=== PATIENT | female | born 1995 | race Caucasian/White ===

== ENCOUNTER 2017-02-12 22:54 | Emergency (ER) | payer BC ==
[2017-02-12 23:03] VITALS: BP 137/81
--- NOTE | 2017-02-12 23:21 | RADIOLOGY REPORT (SQ) ---
EXAM DESCRIPTION: ELBOW RIGHT AP/LAT COMPLETED DATE/TIME: 02/12/2017 11:11 pm REASON FOR STUDY: injury COMPARISON: None. NUMBER OF VIEWS: Two views. TECHNIQUE: AP and lateral radiographic images acquired of the right elbow. LIMITATIONS: None. FINDINGS: MINERALIZATION: Normal. BONES: No acute fracture or dislocation. No worrisome bone lesions. JOINT: No effusion. SOFT TISSUES: No soft tissue swelling. No foreign body. OTHER: No other significant finding. IMPRESSION: NEGATIVE STUDY OF THE RIGHT ELBOW. NO RADIOGRAPHIC EVIDENCE OF ACUTE INJURY. TECHNICAL DOCUMENTATION: JOB ID: [id number] [employer]- All Rights Reserved
--- NOTE | 2017-02-12 23:26 | ER Document Report ---
ED Extremity Problem, Upper - General Chief Complaint: Arm Injury Stated Complaint: RIGHT ARM INJURY Time Seen by Provider: 02/12/17 23:21 Notes: The patient is a 21-year-old female who presents with right elbow pain after she hyperextended it playing with her boyfriend. She is still having some swelling and pain, but denies any other injuries, numbness, tingling, open wounds or shoulder pain. TRAVEL OUTSIDE OF THE [place] IN LAST 30 DAYS: No - Related Data Allergies/Adverse Reactions: No Known Allergies Allergy (Unverified 02/12/17 23:03) Past Medical History - General Information source: Patient - Social History Smoking Status: Unknown if Ever Smoked Family History: Reviewed & Not Pertinent Patient has suicidal ideation: No Patient has homicidal ideation: No Renal/ Medical History: Denies: Hx Peritoneal Dialysis Review of Systems - Review of Systems Notes: REVIEW OF SYSTEMS: CONSTITUTIONAL: -fevers, -chills EENT: -eye pain, -difficulty swallowing, -nasal congestion CARDIOVASCULAR:-chest pain, -syncope. RESPIRATORY: -cough, -SOB GASTROINTESTINAL: -abdominal pain, - nausea, -vomiting, -diarrhea GENITOURINARY: -dysuria, -hematuria MUSCULOSKELETAL: +right elbow pain, -back pain, -neck pain SKIN: -rash or skin lesions. HEMATOLOGIC: -easy bruising or bleeding. LYMPHATIC: -swollen, enlarged glands. NEUROLOGICAL: -altered mental status or loss of consciousness, -headache, - neurologic symptoms PSYCHIATRIC: -anxiety, -depression. ALL OTHER SYSTEMS REVIEWED AND NEGATIVE. Physical Exam - Vital signs Vitals: Temp Pulse Resp BP Pulse Ox 98.8 F 66 18 137/81 H 100 02/12/17 23:00 02/12/17 23:00 02/12/17 23:00 02/12/17 23:00 02/12/17 23:00 - Notes Notes: PHYSICAL EXAMINATION: GENERAL: Well-appearing, well-nourished and in no acute distress. HEAD: Atraumatic, normocephalic. EYES: Pupils equal round and reactive to light, extraocular movements intact, sclera anicteric, conjunctiva are normal. ENT: nares patent, oropharynx clear without exudates. Moist mucous membranes. NECK: Normal range of motion, supple without lymphadenopathy LUNGS: Breath sounds clear to auscultation bilaterally and equal. No wheezes rales or rhonchi. HEART: Regular rate and rhythm without murmurs ABDOMEN: Soft, nontender, normoactive bowel sounds. No guarding, no rebound. No masses appreciated. EXTREMITIES: Mild swelling and tenderness of right medial and lateral elbow. Strong radial and ulnar pulses. Sensation intact. NEUROLOGICAL: Cranial nerves grossly intact. Normal speech, normal gait. Normal sensory and motor exams. PSYCH: Normal mood, normal affect. SKIN: Warm, Dry, normal turgor, no rashes or lesions noted. Course - Re-evaluation Re-evalutation: Patient has no evidence of fractures on elbow x-ray. Suspect she strained her elbow from the hyper extension. She is neurovascularly intact distally. She denies any concern about domestic abuse. - Vital Signs Vital signs: Temp Pulse Resp BP Pulse Ox 98.8 F 66 18 137/81 H 100 02/12/17 23:00 02/12/17 23:00 02/12/17 23:00 02/12/17 23:00 02/12/17 23:00 - Diagnostic Test Radiology reviewed: Image reviewed, Reports reviewed Radiology results interpreted by me: Right elbow x-ray: NAD Discharge - Discharge Clinical Impression: Strain of elbow, right Qualifiers: Encounter type: initial encounter Qualified Code(s): S56.911A - Strain of unspecified muscles, fascia and tendons at forearm level, right arm, initial encounter Condition: Stable Disposition: HOME, SELF-CARE Additional Instructions: SPRAIN: Your injury is a sprain. A sprain results from stretching or tearing of the ligaments, usually from a twisting injury. The ligaments will require time and protection in order to heal properly. Many sprains are quite disabling and should be taken seriously. The usual initial treatment of sprains is cold packs, elevation, and rest of the injured area. Your physician has assessed the seriousness of your ligament injury, and has outlined a treatment plan. Understand that this treatment may change, depending on how you progress. If a re-examination was recommended, it is important that you follow up as instructed. Call the doctor any time if there is severe pain, numbness, or loss of function in the injured area. ICE & ELEVATION: Apply ice packs frequently against the painful area. Many different schedules are recommended, such as "20 minutes on, 20 minutes off" or "one hour ice, two hours rest." If you need to work, you may need to go longer between ice treatments. You should plan to have the area ice packed AT LEAST one- fourth of the time. The ice should be applied over the wrap, tape, or splint, or over a layer of cloth -- not directly against the skin. Some ice bags have a built-in cloth and can be put directly on the skin. Your injured part should be elevated as much as possible over the next 48 hours. Try to keep the injury above the level of the heart. Avoid use of the injured area. Elevation and rest will decrease the swelling. USE OF LHDO-ABB-NIKNNYS IBUPROFEN: Ibuprofen (Advil, Nuprin, Medipren, Motrin IB) is a medication for fever and pain control. In addition, it has anti- inflammatory effects which may be beneficial, especially in the treatment of injuries. It's best to take ibuprofen with food. Persons with ulcer disease or allergy to aspirin should notify their physician of this before taking ibuprofen. Ibuprofen can be given every four to six hours, for a total of four doses daily. Age Pain or fever dose Antiinflammatory dose 6-8 yr 200 mg (1 tab) 200 mg (1 tab) 9-11 yr 200 mg (1 tab) 200-400 mg (1-2 tab) 11-14 yr 200-400 mg (1-2 tab) 400 mg (2 tab) 15-adult 400 mg (2 tab) 600 mg (3 tab) FOLLOW-UP CARE: If you have been referred to a physician for follow-up care, call the physician s office for an appointment as you were instructed or within the next two days. If you experience worsening or a significant change in your symptoms, notify the physician immediately or return to the Emergency Department at any time for re-evaluation. Referrals: SAE QUIROZ DO [ACTIVE STAFF] - Follow up as needed
== END 2017-02-12 23:41 | disposition home or self-care (01) ==
LOC: ER 22:54
DX: S56.911A Strain of unspecified muscles, fascia and tendons at forearm level, right arm, initial encounter (principal); X50.0XXA Overexertion from strenuous movement or load, initial encounter; Y92.009 Unspecified place in unspecified non-institutional (private) residence as the place of occurrence of the external cause; M25.521 Pain in right elbow
CPT/HCPCS: 99283

== ENCOUNTER → 2019-08-26 | Outpatient (CLI) | payer OTHER | LOC: OD 11:57 | PROVIDERS: ATTEND Midwife | DX: N91.1 Secondary amenorrhea (principal); Z41.8 Encounter for other procedures for purposes other than remedying health state | CPT/HCPCS: 36415; 86850; 86900; 86901 ==

== ENCOUNTER 2020-01-29 10:00 | Outpatient (CLI) | payer OTHER, MEDICAID ==
[2020-01-29 10:46] LABS: APPEARANCE,URINE SLIGHTLY-CLOUDY; BILIRUBIN,URINE NEGATIVE (NEGATIVE); COLOR,URINE YELLOW; GLUCOSE, URINE NEGATIVE (NEGATIVE); KETONES,URINE NEGATIVE (NEGATIVE); LEUKOCYTE ESTERASE,URINE LARGE (NEGATIVE); NITRITE,URINE NEGATIVE (NEGATIVE); PROTEIN,URINE NEGATIVE (NEGATIVE); URINE SPECIFIC GRAVITY 1.008; UROBILINOGEN,URINE NEGATIVE mg/dL (<2.0)
[2020-01-29 11:00] LABS: URINE AMPHETAMINES SCREEN NEGATIVE; URINE BARBITURATES SCREEN NEGATIVE; URINE BENZODIAZEPINES SCREEN NEGATIVE; URINE COCAINE SCREEN NEGATIVE; URINE MARIJUANA (THC) SCREEN NEGATIVE; URINE METHADONE SCREEN NEGATIVE; URINE PHENCYCLIDINE SCREEN NEGATIVE
== END 2020-01-29 11:44 | disposition home or self-care (01) ==
LOC: LC 10:00
PROVIDERS: ATTEND Obstetrics & Gynecology
DX: O36.8130 Decreased fetal movements, third trimester, not applicable or unspecified (principal); Z3A.28 28 weeks gestation of pregnancy
CPT/HCPCS: 80307; 81001

== ENCOUNTER 2020-02-10 07:27 | Inpatient (IN) | payer OTHER, MEDICAID ==
[2020-02-10 08:02] LABS: APPEARANCE,URINE CLOUDY; BILIRUBIN,URINE NEGATIVE (NEGATIVE); COLOR,URINE YELLOW; GLUCOSE, URINE NEGATIVE (NEGATIVE); KETONES,URINE TRACE mg/dL (NEGATIVE); LEUKOCYTE ESTERASE,URINE TRACE (NEGATIVE); NITRITE,URINE NEGATIVE (NEGATIVE); PROTEIN,URINE 30 mg/dL (NEGATIVE); URINE SPECIFIC GRAVITY 1.027; UROBILINOGEN,URINE NEGATIVE mg/dL (<2.0)
[2020-02-10] MEDS ORDERED: MAGNESIUM SULFATE 0 GM/0 ML RTUPB IV ONE (08:04)
[2020-02-10] MEDS ORDERED: MAGNESIUM SULFATE 20 GM/500 ML RTUINJ IV ONE (08:04)
[2020-02-10] MEDS ORDERED: BETAMET ACET/BETAMET NA INJ 6 MG/1 ML ONE (08:04)
[2020-02-10] MEDS ORDERED: PENICILLIN G-K 5 MILLION UNIT VIAL ONE (08:05)
[2020-02-10] MEDS ORDERED: DEXTROSE 5%-LACTATED RINGERS 1,000 ML IV PRN (08:09)
[2020-02-10] MEDS ORDERED: PENICILLIN G POTASSIUM 5,000,000 UNIT in DEXTROSE 5%-WATER 100 ML IV ONE (08:13)
[2020-02-10] MEDS ORDERED: MAGNESIUM SULFATE 20 GM/500 ML RTUINJ IV PRN (08:17)
[2020-02-10] MEDS ORDERED: MAGNESIUM SULFATE 4 GM/100 ML RTUPB IV ONE ×2 (08:17→10:16)
[2020-02-10] MEDS ORDERED: ONDANSETRON HCL INJ/PF 4 MG/2 ML SDV IV PRN (08:19)
[2020-02-10 08:23] LABS: URINE AMPHETAMINES SCREEN NEGATIVE; URINE BARBITURATES SCREEN NEGATIVE; URINE BENZODIAZEPINES SCREEN NEGATIVE; URINE COCAINE SCREEN NEGATIVE; URINE MARIJUANA (THC) SCREEN NEGATIVE; URINE METHADONE SCREEN NEGATIVE; URINE PHENCYCLIDINE SCREEN NEGATIVE
--- NOTE | 2020-02-10 08:23 | Admission Physical ---
Datetime Report Generated by CPN: 02/10/2020 08:22 CURRENT ADMISSION Chief Complaint: Uterine Contractions Admit Impression : , Intrauterine ; Active Labor Admit Plan: Admit to Unit; Initiate Labor Protocol ALLERGIES Medication Allergies: No Medication Allergies: No Known Allergies (02/10/2020) Latex: No Latex Allergies OBSTETRICAL HISTORY EDC: 04/21/2020 00:00 : 1 Para: 0 Term: 0 : 0 SAB: 0 IAB: 0 Livin Rh Sensitization: No Incompetent Cervix: No NILTON: No Infertility: No Uterine Anomaly: No IUGR: No Hx Previous C/S: No Macrosomia: No Hx Loss/Stillborn: No PIH: No Hx : No Placenta Previa/Abruption: No Depression/PP Depression: No PTL/PROM: No Post Hemorrhage: No Current Procedures: Ultrasound Obstetrical History Comments: G1- current SEE RECORDS Alcohol: No Marijuana : No Cocaine: No Other Illicit Drugs: No MEDICAL HISTORY Hosp/Surgery: Yes Medical History Comments: t_ a at 7 y/o, PHYSICAL EXAM General: Normal HEENT: Normal Neurologic: Normal Thyroid: Normal Heart: Normal Lungs: Normal Breast: Normal Back: Normal Abdomen: Normal Genitourinary Exam: Normal Extremities: Normal DTRs: Normal Pelvic Type: Adequate Vital Signs: Reviewed VAGINAL EXAM Dilatation: 6 Effacement: 80 Station: -1 Contraction Comments: q2-3 MEMBRANES Membranes: Intact FETUS A EGA: 29.6 Monitoring: External US FHR- Baseline: 155 Variability: Moderate 6-25bpm Accelerations: 15X15 Admit Comment: at 29 wks presents c/o worsening lower back and abdominal pain. Pt states it started yesterday. Denies SROM or bleeding. VE /-1. Vtx on spot check ultrasound., Carolyn Grace and Didier on the floor and aware of pts status. PLan to admit for PTL, start Magnessium Sulfate, Give PNC and Betamethasone. INFORMED CONSENT Assignment: Norma Grace MD Signature: with User ID: [email or web address] : with User ID: [email or web address]
[2020-02-10 08:38] LABS: ABSOLUTE LYMPHOCYTES (AUTO) 1.4 10^3/uL (0.5-4.7); ABSOLUTE MONOCYTES (AUTO) 0.7 10^3/uL (0.1-1.4); ABSOLUTE NEUT (AUTO) 11.3 10^3/uL (1.7-8.2); BASOPHILS % (AUTO) 0.4 % (0-2); EOSINOPHILS % (AUTO) 0.2 % (0-6); HEMATOCRIT 38.8 % (36.0-47.0); LYMPHOCYTES % (AUTO) 10.2 % (13-45); MEAN CORPUSCULAR HEMOGLOBIN 25.8 pg (27.0-33.4); MEAN CORPUSCULAR HGB CONC 33.5 g/dL (32.0-36.0); MEAN CORPUSCULAR VOLUME 77 fl (80-97); MONOCYTES % (AUTO) 5.2 % (3-13); PLATELET COUNT 204 10^3/uL (150-450); RED BLOOD COUNT 5.04 10^6/uL (3.72-5.28); RED CELL DISTRIBUTION WIDTH 15.7 % (11.5-14.0); TOTAL CELLS COUNTED % (AUTO) 100 %; WHITE BLOOD COUNT 13.4 10^3/uL (4.0-10.5)
[2020-02-10] MEDS ORDERED: ONDANSETRON HCL INJ/PF 4 MG/2 ML SDV ONE (08:38)
[2020-02-10 08:53] LABS: BACTERIA (WET MOUNT) 4+ BACTERIA SEEN; EPITHELIALS (WET MOUNT) 4+ EPITHELIALS SEEN; RBCS (WET MOUNT) FEW RBCS SEEN; T.VAGINALIS (WET MOUNT) NO TRICHOMONAS SEEN; WBCS (WET MOUNT) 2+ WBCS SEEN; YEAST (WET MOUNT) NO YEAST SEEN
[2020-02-10] MEDS ORDERED: EPHEDRINE SULFATE INJ 50 MG/1 ML AMPULE ONE (09:07)
[2020-02-10] MEDS ORDERED: AZITHROMYCIN INJ 500 MG VIAL IV ONE ×2 (09:08→10:25)
[2020-02-10] MEDS ORDERED: ROPIVACAINE HCL 0.2% INJ/PF (2 MG/ML) 20 ML SDV ONE (09:08)
[2020-02-10] MEDS ORDERED: FENTANYL/BUPIVACAINE/NS/PF 300 MCG/150 ML RTUINJ EPI ONE (09:08)
[2020-02-10] MEDS ORDERED: LIDOCAINE 1% INJ-PF (10 MG/ML) 30 ML SDV ONE ×2 (09:32→16:28)
[2020-02-10] MEDS ORDERED: BETAMET ACET/BETAMET NA INJ 6 MG/1 ML IM SCH (10:00)
[2020-02-10 10:46] LABS: CHLAM PCR NOT DETECTED (NOT DETECT)
[2020-02-10] MEDS ORDERED: AMPICILLIN SODIUM 2 GM in NORMAL SALINE 100 ML IV SCH (12:00)
[2020-02-10] MEDS ORDERED: PENICILLIN G POTASSIUM 2,500,000 UNIT in DEXTROSE 5%-WATER 50 ML IV SCH (12:14)
[2020-02-10] MEDS ORDERED: MISOPROSTOL 0.2 MG TABLET ONE (16:28)
[2020-02-10] MEDS ORDERED: OXYTOCIN/0.9 % SODIUM CHLORIDE 30 UNIT/500 ML RTUINJ ONE (16:29)
[2020-02-10] MEDS ORDERED: ACETAMINOPHEN WITH CODEINE #3 TABLET PO PRN (16:57)
[2020-02-10] MEDS ORDERED: MAGNESIUM HYDROXIDE SUSP 30 ML UDCUP PO PRN (16:57)
[2020-02-10] MEDS ORDERED: GLYCERIN/WITCH HAZEL LEAF 1 EACH MED..WIPE TP PRN (16:57)
[2020-02-10] MEDS ORDERED: DIPH/PERTUSS(ACELL)/TETANUS VAC/PF 0.5 ML SYR (>=10YO) IM PRN (16:57)
[2020-02-10] MEDS ORDERED: OXYTOCIN/0.9 % SODIUM CHLORIDE 30 UNIT/500 ML RTUINJ IV PRN (16:57)
[2020-02-10] MEDS ORDERED: PSEUDOEPHEDRINE HCL 30 MG TABLET PO PRN (16:57)
[2020-02-10] MEDS ORDERED: BENZOCAINE/MENTHOL AEROSOL SPRAY 56 ML TOP PRN (16:57)
[2020-02-10] MEDS ORDERED: PROMETHAZINE HCL 25 MG SUPP.RECT PR PRN (16:57)
[2020-02-10] MEDS ORDERED: MEASLES,MUMPS&RUBELLA VACC/PF 0.5 ML VIAL SUBCUT PRN (16:57)
[2020-02-10] MEDS ORDERED: ZOLPIDEM TARTRATE 5 MG TABLET PO PRN (16:57)
[2020-02-10] MEDS ORDERED: DIBUCAINE 1% OINTMENT 28 GM TP PRN (16:57)
[2020-02-10] MEDS ORDERED: PROMETHAZINE HCL 25 MG TABLET PO PRN (16:57)
[2020-02-10] MEDS ORDERED: PROMETHAZINE HCL INJ 25 MG/1 ML VIAL IV PRN (16:57)
[2020-02-10] MEDS ORDERED: NA PHOS,M-B/NA PHOS,DI-BA (ADULT) 133 ML ENEMA PR PRN (16:57)
[2020-02-10] MEDS ORDERED: ACETAMINOPHEN 650 MG SUPP.RECT PR PRN (16:57)
[2020-02-10] MEDS ORDERED: DIPHENHYDRAMINE HCL 25 MG CAPSULE PO PRN (16:57)
[2020-02-10] MEDS ORDERED: IBUPROFEN 800 MG TABLET PO SCH (17:00)
--- NOTE | 2020-02-10 17:19 | PDOC DISCHARGE SUMMARY ---
Impression - Admit/DC Date/PCP Admission Date/Primary Care Provider: 02/10/20 08:12 Discharge Date: 02/10/20 - labor at 29 weeks. +Actiprom noted on admission. S/p Betamethasone, PCN and Ampicillin - Discharge Diagnosis (1) 29 to 30 weeks gestation of Is this a current diagnosis for this admission?: Yes (2) Gestational diabetes mellitus (GDM) Is this a current diagnosis for this admission?: Yes (3) labor in third trimester Is this a current diagnosis for this admission?: Yes (4) premature rupture of membranes Is this a current diagnosis for this admission?: Yes (5) (spontaneous vaginal delivery) Is this a current diagnosis for this admission?: Yes - Additional Information Discharge Diet: As Tolerated, Regular Discharge Activity: Activity As Tolerated, No Driving, No Lifting Over 10 Pounds, Pelvic Rest Prescriptions: Ibuprofen [Motrin 800 mg Tablet] 800 mg PO Q8 #60 tablet Home Medications: Vits96/Iron Fum/Folic [ Tablet] 1 each PO DAILY 01/29/20 Ibuprofen [Motrin 800 mg Tablet] 800 mg PO Q8 #60 tablet 02/10/20 Results Laboratory Results: WBC 13.4 10^3/uL (4.0-10.5) H 02/10/20 08:25 RBC 5.04 10^6/uL (3.72-5.28) 02/10/20 08:25 Hgb 13.0 g/dL (12.0-15.5) 02/10/20 08:25 Hct 38.8 % (36.0-47.0) 02/10/20 08:25 MCV 77 fl (80-97) L 02/10/20 08:25 MCH 25.8 pg (27.0-33.4) L 02/10/20 08:25 MCHC 33.5 g/dL (32.0-36.0) 02/10/20 08:25 RDW 15.7 % (11.5-14.0) H 02/10/20 08:25 Plt Count 204 10^3/uL (150-450) 02/10/20 08:25 Lymph % (Auto) 10.2 % (13-45) L 02/10/20 08:25 [place] % (Auto) 5.2 % (3-13) 02/10/20 08:25 Eos % (Auto) 0.2 % (0-6) 02/10/20 08:25 Baso % (Auto) 0.4 % (0-2) 02/10/20 08:25 Absolute Neuts (auto) 11.3 10^3/uL (1.7-8.2) H 02/10/20 08:25 Absolute Lymphs (auto) 1.4 10^3/uL (0.5-4.7) 02/10/20 08:25 Absolute Monos (auto) 0.7 10^3/uL (0.1-1.4) 02/10/20 08:25 Absolute Eos (auto) 0.0 10^3/uL (0.0-0.6) 02/10/20 08:25 Absolute Basos (auto) 0.0 10^3/uL (0.0-0.2) 02/10/20 08:25 Seg Neutrophils % 84.0 % (42-78) H 02/10/20 08:25 Urine Color Cancelled 02/10/20 08:38 Urine Appearance Cancelled 02/10/20 08:38 Urine pH Cancelled 02/10/20 08:38 Ur Specific Funk Cancelled 02/10/20 08:38 Urine Protein Cancelled 02/10/20 08:38 Urine Glucose (UA) Cancelled 02/10/20 08:38 Urine Ketones Cancelled 02/10/20 08:38 Urine Blood Cancelled 02/10/20 08:38 Urine Nitrite Cancelled 02/10/20 08:38 Urine Bilirubin Cancelled 02/10/20 08:38 Urine Urobilinogen Cancelled 02/10/20 08:38 Ur Leukocyte Esterase Cancelled 02/10/20 08:38 Urine WBC (Auto) 8 /HPF 02/10/20 07:45 Urine RBC (Auto) 4 /HPF 02/10/20 07:45 U Hyaline Cast (Auto) 1 /LPF 02/10/20 07:45 Urine Bacteria (Auto) 1+ /HPF 02/10/20 07:45 Squamous Epi Cells Auto 9 /HPF 02/10/20 07:45 Urine Mucus (Auto) FEW /LPF 02/10/20 07:45 Urine Ascorbic Acid Cancelled 02/10/20 08:38 Membranes Rupture POSITIVE (NEGATIVE) H 02/10/20 08:38 Epi Cells (Wet Prep) 4+ EPITHELIALS SEEN 02/10/20 08:38 Bacteria (Wet Prep) 4+ BACTERIA SEEN 02/10/20 08:38 Trichomonas (Wet Prep) NO TRICHOMONAS SEEN 02/10/20 08:38 Vaginal WBC 2+ WBCS SEEN 02/10/20 08:38 Vaginal RBC FEW RBCS SEEN 02/10/20 08:38 Vaginal Yeast NO YEAST SEEN 02/10/20 08:38 Urine Opiates Screen NEGATIVE 02/10/20 07:45 Urine Methadone Screen NEGATIVE 02/10/20 07:45 Ur Barbiturates Screen NEGATIVE 02/10/20 07:45 Ur Phencyclidine Scrn NEGATIVE 02/10/20 07:45 Ur Amphetamines Screen NEGATIVE 02/10/20 07:45 U Benzodiazepines Scrn NEGATIVE 02/10/20 07:45 Urine Cocaine Screen NEGATIVE 02/10/20 07:45 U Marijuana (THC) Screen NEGATIVE 02/10/20 07:45 Chlamydia DNA (PCR) NOT DETECTED (NOT DETECT) 02/10/20 08:38 N.gonorrhoeae DNA (PCR) NOT DETECTED (NOT DETECT) 02/10/20 08:38 Blood Type A POSITIVE 02/10/20 08:25 Antibody Screen NEGATIVE 02/10/20 08:25 Plan Plan of Treatment: d/c home so patient may go to other hospital to be with 29 week baby Time Spent: Less than 30 Minutes
[2020-02-10] MEDS ORDERED: IBUPROFEN 800 MG TABLET ONE (17:53)
[2020-02-10] MEDS ORDERED: FERROUS SULFATE 325 MG TABLET PO SCH (18:00)
[2020-02-10] MEDS ORDERED: DOCUSATE SODIUM 100 MG CAPSULE PO SCH (18:00)
--- NOTE | 2020-02-10 18:53 | Delivery Summary ---
Del Sum A-C Datetime Report Generated by CPN: 02/10/2020 18:52 DELIVERY PERSONNEL DELIVERY PERSONNEL: [id number] Delivery Doctor:: Martin Velásquez MD Nurse Automatic Furnace Operator Certified:: Jodee Dorado CNM Labor and Delivery Nurse:: Carlotta Weston RNcounter checker Nurse:: HONG Lucas Chip Person:: Dr. Marisol Abbott Nurse Practitioner:: ANUJA Moreira Nursery Nurse:: Jeanie Martinez RN Nursery Nurse:: Cammie Mayes RN Patrol Driver/TYPE BAR AND SEGMENT ASSEMBLER: Geri Rivera CST Patrol Driver/TYPE BAR AND SEGMENT ASSEMBLER: Isatu Brink WET COTTON FEEDER MATERNAL INFORMATION Delivery Anesthesia: Epidural Medications After Delivery: Pitocin Bolus-Please Comment; Pitocin 30 Units in 500ml NS/D5W Meds After Delivery Comment: Pitocin 30 units in 500 ml NS Delivery QBL: 150 Maternal Complications: Other Complication Details: labor 29.6 weeks Provider Comments: Dr Velásquez in room, VE C/+2, Magnessium Sulfate turned off. NICU team at bedside. of VMI at 29.6 weeks. placed in bag for warmth, vigorous and making spontaneous respirations and noises. Cord clamping delayed x 1 min. cord then cut and baby was placed on warmer to NICU team to take over care. Cord blood obtained. Placenta S/C/I, IV Pitocin infusing. perineum intact. ff w/ decreased lochia. QBL 150 ml. Placenta to go to pathology. Mother and baby in stable condition. Dr Velásquez attending MD LABOR SUMMARY EDC: 04/21/2020 00:00 No. Babies in Womb: 1 Attempted: No Labor Anesthesia: Epidural LABOR INFORMATION Reason for Induction: Not Applicable Onset of Labor: 02/10/2020 05:30 Complete Dilatation: 02/10/2020 16:19 Oxytocin: N/A Group B Beta Strep: unknown Antibiotics # of Doses: 3 Antibiotics Time of Last Dose: 1409 Name of Antibiotic Given: Ampicillin Steroids Given: Partial Course Reason Steroids Not Administered: Imminent Delivery MEMBRANES Membranes Rupture Method: Spontaneous Rupture of Membranes: 02/10/2020 05:30 Length of Rupture (hr): 11.25 Amniotic Fluid Color: Clear Amniotic Fluid Amount: Small Amniotic Fluid Odor: Normal STAGES OF LABOR Stage 1 hr: 10 Stage 1 min: 49 Stage 2 hr: 0 Stage 2 min: 26 Stage 3 hr: 0 Stage 3 min: 4 Total Time in Labor hr: 11 Total Time in Labor min: 19 VAGINAL DELIVERY Episiotomy: None Laceration #1: None Laceration Extension #1: N/A Sponge Count Correct: N/A Sharps Count Correct: N/A CSECTION DELIVERY Primary Indication: N/A Secondary Indication: N/A CSection Incidence: N/A Labor: N/A Elective: N/A CSection Incision: N/A BABY A INFORMATION Delivery Date/Time: 02/10/2020 16:45 Method of Delivery: Vaginal Nurse Controlled Delivery: No Born in Route : No : N/A Forceps: N/A Vacuum Extraction: N/A Shoulder Dystocia : No PRESENTATION/POSITION BABY A Presentation: Cephalic Cephalic Presentation: Vertex Vertex Position: Left Occipital Anterior Breech Presentation: N/A PLACENTA INFORMATION BABY A Placenta Delivery Time : 02/10/2020 16:49 Placenta Method of Delivery: Spontaneous Placenta Status: Delivered SCORES BABY A Heart Rate 1 min: >100 bpm Resp Effort 1 min: Slow, Irregular Reflex Irritability 1 min: Grimace Muscle Tone 1 min: Some Flexion of Extremities Color 1 min: Blue/Pale SCORE 1 MIN: 5 Heart Rate 5 min: >100 bpm Resp Effort 5 min: Slow, Irregular Reflex Irritability 5 min: Cough or Sneeze or Pulls Away Muscle Tone 5 min: Active Motion Color 5 min: Body [place], Extremities Blue SCORE 5 MIN: 8 INFORMATION BABY A Gestational Age at Delivery: 29.6 Gestational Status: - <34 Weeks Infant Outcome : Liveborn Condition : Stable Sex: Male IDENTIFICATION BABY A Infant Verification Date/Time: 02/10/2020 17:13 ID Band Number: [id number] RN Verifying : SCamp,RN MMobley, RN WEIGHT/LENGTH BABY A Birthweight (gm): 1503 Infant Weight (lb): 3 Weight (oz): 5 Infant Length (in): 16.75 Length (cm): 42.55 CORD INFORMATION BABY A No. Cord Vessels: 3 Nuchal Cord : N/A Nuchal Cord- Other: body cord Cord Blood Taken: Yes-For Storage (Mom's Blood type +) Suction: None ASSESSMENT BABY A Infant Complications: Other Complications- Other: prematurity Skin to Skin: No Chip Person/ALS Called : Yes Care By: Cathryn Guerrero SPIRAL BINDER/ Dr Minior Transferred To: NICU BABY B INFORMATION : N/A SIGNATURES Assignment: Mratin Velásquez MD Signature: with User ID: [email or web address] : with User ID: [email or web address]
[2020-02-10 19:55] VITALS: BP 134/60
[2020-02-10] MEDS ORDERED: FAMOTIDINE 20 MG TABLET PO SCH (22:00)
[2020-02-11] MEDS ORDERED: SENNOSIDES/DOCUSATE 8.6-50 MG 1 EACH TABLET PO SCH (10:00)
[2020-02-11] MEDS ORDERED: PRENATAL VITAMIN W DHA CAPSULE PO SCH (10:00)
== END 2020-02-10 20:19 | disposition home or self-care (01) | DRG 807 ==
LOC: LC 07:27 → LR 08:12
PROVIDERS: ADMIT Obstetrics & Gynecology; ATTEND Obstetrics & Gynecology
PROC: 10E0XZZ Delivery of Products of Conception, External Approach (ICD-10-PCS; principal; 2020-02-10)
DX: O60.14X0 Preterm labor third trimester with preterm delivery third trimester, not applicable or unspecified (principal); Z37.0 Single live birth; O24.420 Gestational diabetes mellitus in childbirth, diet controlled; O69.2XX0 Labor and delivery complicated by other cord entanglement, with compression, not applicable or unspecified; Z3A.29 29 weeks gestation of pregnancy; Z20.818 Contact with and (suspected) exposure to other bacterial communicable diseases
CPT/HCPCS: 1967; 36415; 80307; 81001; 84112; 85025; 86592; 86850; 86900; 86901; 87077; 87081; 87210; 87491; 87591; 87635; 88307; 94760; 96372; C9803; J0290; J0456; J0702; J2405; J2540; J2590; J2795; J3010; J3475; J3490; J7050; J7060